=== PATIENT | male | born 1990 | race Caucasian/White ===

== ENCOUNTER 2023-02-19 16:04 | Emergency (ER) | payer BC, SELFPAY ==
--- NOTE | ~2023-02-19 | XR_ITS ---
EXAMINATION: XR chest 2V DATE: 02/19/2023 17:03 INDICATION: Shortness of breath TECHNIQUE: PA and lateral views of the chest were obtained. COMPARISON: None FINDINGS: The lungs are clear with no focal airspace opacities, pulmonary edema, pleural effusion or pneumothor ax. The cardiomediastinal silhouette is normal. Cholecystectomy clips in right upper quadrant. Visual ized bones and soft tissues are unremarkable. IMPRESSION: 1. No acute cardiopulmonary disease. Reviewed, dictated and finalized at location A.
[2023-02-19 16:29] VITALS: BP 134/76; PULSE 126; RESP 17; TEMP 37.5; O2SAT 99
--- NOTE | 2023-02-19 16:33 | ECG_ITS ---
Measurements Intervals [place] Rate: 124 P: 55 OK: 108 QRS: 60 QRSD: 84 T: 49 QT: 311 QTc: 447 Interpretive Statements SINUS TACHYCARDIA RSR' IN V1 OR V2, PROBABLY NORMAL VARIANT BORDERLINE ST ABNORMALITY- INFERIOR LEADS ABNORMAL ECG NO PREVIOUS ECG AVAILABLE FOR COMPARISON Electronically Signed On 02-19-2023 21:28:17 CDT by Norman Hodge D.O.
[2023-02-19 17:09] LABS: Alanine Aminotransferase 28 U/L (6-50); Albumin Level 4.9 g/dL (3.5-5.1); Alkaline Phosphatase 54 U/L (38-126); Anion Gap 11 mmol/L (8-16); Aspartate Amino Transferase 32 U/L (17-59); Bilirubin,Total 1.1 mg/dL (0.2-1.3); Blood Urea Nitrogen 6 mg/dL (9-20); Carbon Dioxide 24 mmol/L (22-30); Chloride 106 mmol/L (98-107); Estimated CRCL calculation 125 ml/min; Estimated Glomerular Filt Rate > 60; Glucose 90 mg/dL (65-110); Potassium 3.5 mmol/L (3.4-5.0); Sodium 141 mmol/L (137-145)
--- NOTE | 2023-02-19 17:27 | ED.SOB ---
HPI - SOB/Dyspnea General Chief Complaint: Shortness of Breath/Dyspnea Stated Complaint: TROUBLE BREATHING Time Seen by Provider: 02/19/23 17:06 Source: patient Mode of arrival: ambulatory Limitations: no limitations History of Present Illness HPI Narrative: This is a 32-year-old male that presents to the emergency department for shortness of breath. Ongoing over the last 5 days. Reports he was loading up dex of wheat before this started. He is unsure if maybe the dust from that has caused him to wheeze and be short of breath. He tried using a friend's albuterol inhaler with little relief. He reports a productive cough and a mild sore throat from coughing. Denies fevers or chest pain. Related Data Allergies Allergy/AdvReac Type Severity Reaction Status Date / Time morphine Allergy Unknown Verified 02/19/23 17:28 vancomycin Allergy Unknown Verified 02/19/23 17:28 Review of Systems Review of Systems: CONSTITUTIONAL: Denies fever ENT: Reports congestion, sore throat CARDIOVASCULAR: Denies chest pain, edema. RESPIRATORY: Reports cough and dyspnea. All systems reviewed & are unremarkable except as noted in HPI and below PMFSH Past Medical History Medical History (Updated 02/19/23 @ 18:43 by Janette Cope PA-C) No active medical problems Social History Social History (Updated 02/19/23 @ 17:30 by Janette Cope PA-C) Smoking status: Never smoker Exam Narrative: GENERAL: Well-appearing, well-nourished, and in no acute distress. HEAD: Normocephalic, atraumatic. EYES: EOMI. ENT: Nares clear, no rhinorrhea or epistaxis. Mucous membranes moist. Oropharynx without tonsillar hypertrophy exudate or other lesions. Bilateral TMs pearly henderson non-bulging NECK: Supple. No adenopathy or masses. CHEST: No respiratory distress. Diffuse expiratory wheezing. No rales or rhonchi HEART: Regular rate and rhythm. No murmur heard. Normal peripheral pulses. EXTREMITIES: Normal range of motion. No edema. SKIN: Warm, dry, no rash. NEURO: No focal deficits. Alert and oriented x3. PSYCH: Normal mood and affect Course Course Emergency Course: Patient and family updated on work-up and agree with plan of care. Reports feeling much better after nebulizer treatment. Lungs are now much more open Vital Signs Vital signs: Vital Signs Temperature 99.5 F 02/19/23 16:29 Pulse Rate 126 H 02/19/23 16:29 Respiratory Rate 17 02/19/23 16:29 Blood Pressure 134/76 02/19/23 16:29 Pulse Oximetry 99 02/19/23 16:29 Oxygen Delivery Room Air 02/19/23 16:29 Temperature 99.5 F 02/19/23 16:29 Pulse Rate 126 H 02/19/23 16:29 Respiratory Rate 20 02/19/23 18:02 Blood Pressure 134/76 02/19/23 16:29 Pulse Oximetry 99 02/19/23 16:29 Oxygen Delivery Room Air 02/19/23 17:35 MDM - SOB/Dyspnea MDM Narrative Medical decision making narrative: Patient presents to the emergency department for shortness of breath and wheezing. Associated with viral symptoms. He is afebrile and nontoxic-appearing. Oxygen saturation has remained normal on room air. Tachycardic upon arrival, this improved after IV fluid administration. Patient with diffuse wheezing upon arrival as well, this improved with nebulizer treatment. CBC with mild leukocytosis to 12.2. Metabolic panel without concerning findings. Influenza and COVID screens are negative. Chest x-ray without acute cardiopulmonary abnormality. Patient will be discharged with albuterol prescription and continued steroid treatment. He is to follow-up with primary care provider. He was given warnings to return to the ER Differential Diagnosis Differential diagnosis: Likely community acquired pneumonia, asthma with exacerbation and other (Viral syndrome) Lab Data Attestation: I reviewed the patient's lab results. 02/19/23 17:40 02/19/23 16:50 Labs: Lab Results 02/19/23 02/19/23 Range/Units 16:50 17:40 WBC 12.2 H (4.5-10.
[2023-02-19] MEDS: ACETAMINOPHEN 500 MG TABLET 1000 MG PO (17:36)
[2023-02-19] MEDS: SODIUM CHLORIDE 0.9% IV 1,000 ML 999 ML IV CONT (17:37)
[2023-02-19] MEDS: methylPREDNISolone SOD SUCC 125 MG VIAL IV PUSH (17:37)
[2023-02-19 17:47] LABS: Basophils Absolute Auto 0.1 K/mm3 (0.0-0.1); Basophils Percent Auto 0.7 % (0.2-1.2); Eosinophils Absolute Auto 0.2 K/mm3 (0-0.3); Eosinophils Percent Auto 1.6 % (0-4.4); Hematocrit 47.5 % (42.0-52.0); Immature Granulocyte Absolute 0.04 K/mm3 (0.00-0.031); Immature Granulocyte Percent A 0.3 % (0-0.5); Lymphocytes Absolute Auto 1.44 K/mm3 (0.9-3.2); Lymphocytes Percent Auto 11.8 % (18.3-44.2); Mean Corpuscular HGB Conc 33.7 g/dl (32-36); Mean Corpuscular Hemoglobin 28.9 pg (26-34); Mean Corpuscular Volume 85.7 fl (80-100); Mean Platelet Volume 8.8 fl (7.4-10.4); Monocytes Absolute Auto 1.3 K/mm3 (0.1-0.6); Monocytes Percent Auto 10.9 % (2.6-8.5); Neutrophils Absolute Auto 9.1 K/mm3 (1.3-6.7); Neutrophils Percent Auto 74.7 % (45.5-73.1); Platelet Count Result 273 k/mm3 (150-375); Red Blood Count 5.54 M/mm3 (4.6-6.20); Red Cell Distribution Width 12.3 % (11.5-14.5); White Blood Count 12.2 K/mm3 (4.5-10.0)
[2023-02-19] MEDS: IPRATROPIUM BR 0.02% INH SOLN 0.5 MG/2.5 ML VIAL INHALATION (18:01)
[2023-02-19] MEDS: ALBUTEROL SULFATE NEB 2.5 MG/3 ML INH INHALATION (18:01)
[2023-02-19 18:02] VITALS: RESP 20
[2023-02-19 18:23] LABS: Influenza A QL RT-PCR Negative (Negative); Influenza B QL RT-PCR Negative (Negative); SARS-CoV-2 RNA PCR Negative (Negative)
[2023-02-19 19:02] VITALS: BP 118/72; PULSE 105; RESP 18; O2SAT 96
== END 2023-02-19 19:03 | disposition home or self-care (01) ==
PROVIDERS: Emergency Medicine; Emergency Provider Physician Assistant
DX: B34.9 Viral infection, unspecified (principal); Z20.822 Contact with and (suspected) exposure to COVID-19; R06.2 Wheezing
CPT/HCPCS: 36415; 71046; 80053; 85025; 87636; 93005; 94640; 96361; 96374; 99284; A9270; J2930; J7030